=== PATIENT | female | born 1960 | race Caucasian/White ===

== ENCOUNTER 2019-06-06 07:53 | Day surgery (SDC) | payer OTHER ==
[~2019-06-06] VITALS: Ht 154.9 cm; Wt 66.9 kg
[~2019-06-06 07:53] MED LIST: DHEA 10 MG TAB1 EACH PO
== END 2019-06-06 09:41 | disposition home or self-care (01) ==
LOC: ORSCSDS 07:53
PROVIDERS: Surgery
PROC: 0DBK8ZX Excision of Ascending Colon, Via Natural or Artificial Opening Endoscopic, Diagnostic (ICD-10-PCS; principal; 2019-06-06 09:15)
PROC: 0DBL8ZX Excision of Transverse Colon, Via Natural or Artificial Opening Endoscopic, Diagnostic (ICD-10-PCS; principal; 2019-06-06 09:15)
DX: Z12.11 Encounter for screening for malignant neoplasm of colon (principal); Z86.010 Personal history of colon polyps; K63.5 Polyp of colon; D12.3 Benign neoplasm of transverse colon; K57.30 Diverticulosis of large intestine without perforation or abscess without bleeding; E78.5 Hyperlipidemia, unspecified; D64.9 Anemia, unspecified; E55.9 Vitamin D deficiency, unspecified; E78.00 Pure hypercholesterolemia, unspecified; F17.210 Nicotine dependence, cigarettes, uncomplicated
CPT/HCPCS: 88305; J2704; J7120

== ENCOUNTER 2025-02-13 09:02 | Day surgery (SDC) | payer OTHER ==
[2025-02-13] VITALS (27 sets, daily range): BP systolic 101–140; BP diastolic 63–93
[~2025-02-13] VITALS: Ht 157.5 cm; Wt 63.0 kg
[~2025-02-13 09:02] MED LIST changes: +ALBU90OI INH; +ASPIR 8181 M1 PO; +Prinivil10 MG PO; +TIOT18 INH
--- NOTE | 2025-02-13 09:38 | NUR ---
Patient States Post-Procedure ride home has been arranged. Patient confirms NPO status and agrees with scheduled surgery. Lungs dim but clear T/O to Auscultation.
--- NOTE | 2025-02-13 10:00 | NUR ---
02/13/25 Joyce Vanessa CONFIRMED AND REVIEWED H&P, MEDCICATIONS, ALLERGIES, MEDICAL HISTORY, RESPIRATORY HISTORY, VITAL SIGNS, 3-LEAD EKG, CONSENTS, AND PHYSICIAN ORDERS. PATIENT CONFIRMS NPO STATUS AND AGREES WITH SCHEDULED PROCEDURE. MONITOR INTACT WITH CONTINUOUS PULSE OXIMETRY, CAPNOGRAPHY, 3-LEAD EKG, INTERMITTENT BP. SUPPLEMENTAL O2 TO BE TITRATED THROUGHOUT PROCEDURE TO MAINTAIN O2 SATURATION ABOVE 90%. PATIENT DETERMINED TO BE ASA APPROPRIATE FOR PROPOFOL SEDATION PRIOR TO START OF PROCEDURE BY DR. CARMONA.
--- NOTE | 2025-02-13 11:01 | NUR ---
Report received from Mana CARTER. VSS. Pt on RA. Pt A&OX4. Pt able to reposition self in bed. Pt requesting PO food and fluids and dashawn them well. Pt denies pain, nausea or other discomforts.
--- NOTE | 2025-02-13 11:27 | NUR ---
Patient up to Ambulate independently. Gait steady. VSS and consistent with pt baseline. Pt has no complaints and verbalizes readiness to go home. Discharge instructions reviewed with patient and her daughter. Patient verbalizes understanding. Copy given to patient to take home. Patient States Post-Procedure ride home has been arranged. Discharged via wheelchair to private car for ride home. Pt belongings returned to pt.
== END 2025-02-13 11:20 | disposition home or self-care (01) ==
LOC: ORSCMMR 09:02 → ORD 10:15 → ORSCMMR 10:15
PROVIDERS: Surgery
PROC: 0DBL8ZX Excision of Transverse Colon, Via Natural or Artificial Opening Endoscopic, Diagnostic (ICD-10-PCS; principal; 2025-02-13 10:15)
PROC: 0DBK8ZX Excision of Ascending Colon, Via Natural or Artificial Opening Endoscopic, Diagnostic (ICD-10-PCS; principal; 2025-02-13 10:15)
DX: Z12.11 Encounter for screening for malignant neoplasm of colon (principal); D12.2 Benign neoplasm of ascending colon; D12.3 Benign neoplasm of transverse colon; K57.30 Diverticulosis of large intestine without perforation or abscess without bleeding; Z86.0101 Personal history of adenomatous and serrated colon polyps; Z86.0102 Personal history of hyperplastic colon polyps; J44.9 Chronic obstructive pulmonary disease, unspecified; I25.10 Atherosclerotic heart disease of native coronary artery without angina pectoris; E78.5 Hyperlipidemia, unspecified; Z79.82 Long term (current) use of aspirin; Z79.899 Other long term (current) drug therapy; F17.210 Nicotine dependence, cigarettes, uncomplicated
CPT/HCPCS: 88305; J2704; J7120